=== PATIENT | female | born 1950 | race Caucasian/White ===

== ENCOUNTER → 2017-06-19 | Outpatient (CLI) | payer BC, MEDICARE ==
--- NOTE | 2017-06-19 15:33 | US ---
EXAMINATION TYPE: US thyroid st tissue head/neck DATE OF EXAM: 06/19/2017 COMPARISON: NONE CLINICAL HISTORY: E03.9 hypothyroidism. GLAND SIZE: Right Lobe: 5.6 x 1.4 x 1.5 cm Overall Parenchyma: diffusely heterogeneous Left Lobe: 4.9 x 1.3 x 1.2 cm Overall Parenchyma: diffusely heterogeneous Isthmus Thickness: 0.3 cm NODULES RIGHT: # of nodules measured on right: 1 1. 1.0 X 0.6 x 0.9 cm isoechoic solid nodule at the anterior mid pole with well definited margins. This nodule is wider than tall and shows no intranodular vascularity. Prior size: no previous LEFT: # of nodules measured on left: 0 ISTHMUS: # of nodules measured in the isthmus: 0 Bilateral neck scanned, no evidence of lymphadenopathy. IMPRESSION: Nonspecific thyroid nodule right thyroid lobe.
== END | disposition home or self-care (01) ==
LOC: RADUSWWP 13:31
PROVIDERS: ATTEND Family Medicine
DX: E04.1 Nontoxic single thyroid nodule (principal); E03.9 Hypothyroidism, unspecified
CPT/HCPCS: 76536

== ENCOUNTER 2017-08-23 12:14 | Day surgery (SDC) | payer BC, MEDICARE ==
[2017-08-23 12:47] VITALS: RESP 18
--- NOTE | 2017-08-23 13:45 | US ---
ULTRASOUND GUIDED FNA THYROID BIOPSY: CLINICAL HISTORY: 1 cm right thyroid nodule FINDINGS: The procedure was explained to the patient. The risks, complications, benefits and alternatives were discussed and any questions were answered. Informed consent was obtained. Patient was placed supin e on the ultrasound table and prepped and draped in the usual sterile fashion. Utilizing a 25 gauge needle, five passes were made into the requested nodule. Patient was stable throughout the procedure. Pathology is pending. All elements of maximal barrier technique were utilized. IMPRESSION: 1. Successful ultrasound guided FNA thyroid biopsy.
[2017-08-23 14:01] VITALS: BP 116/62; PULSE 66; TEMP 97.6
== END 2017-08-23 13:45 | disposition home or self-care (01) ==
LOC: RADPROMAIN 12:14
PROVIDERS: ATTEND Otolaryngology
DX: E04.1 Nontoxic single thyroid nodule (principal)
CPT/HCPCS: 10022; 76942; 88173; 88305

== ENCOUNTER → 2018-06-26 | Outpatient (CLI) | payer BC, MEDICARE ==
--- NOTE | 2018-06-26 14:43 | US ---
EXAMINATION TYPE: US thyroid st tissue head/neck DATE OF EXAM: 06/26/2018 COMPARISON: US dated 08/23/2017 and 06/19/2017 CLINICAL HISTORY: E04.1 THYROID NODULE. F/U right thyroid nodule GLAND SIZE: Right Lobe: 5.0 x 1.4 x 1.5 cm Overall Parenchyma: heterogenous Left Lobe: 4.6 x 1.1 x 1.4 cm Overall Parenchyma: heterogeneous Isthmus Thickness: 0.3 cm NODULES RIGHT: # of nodules measured on right: 1 1. 1.0 X 0.5 x 0.9 cm isoechoic solid nodule at the mid pole with poorly defined margins; This nodu le is wider than tall and shows intranodular vascularity. Prior size: 1.0 x 0.6 x 0.9 cm Bilateral neck scanned, no evidence of lymphadenopathy. Stable nodule right thyroid. IMPRESSION: Stable solitary 1.0 cm right thyroid isoechoic nodule in comparison to the exam of 06/19/2017, appeari ng to be previously biopsied on 08/23/2017.
== END | disposition home or self-care (01) ==
LOC: RADUSWWP 14:11
PROVIDERS: ATTEND Otolaryngology
DX: E04.1 Nontoxic single thyroid nodule (principal)
CPT/HCPCS: 76536

== ENCOUNTER → 2021-01-03 | Outpatient (CLI) | payer MEDICARE ==
--- NOTE | 2021-01-03 15:57 | US ---
EXAMINATION TYPE: US thyroid st tissue head/neck DATE OF EXAM: 01/03/2021 COMPARISON: 06/26/2018 CLINICAL HISTORY: E04.1 thyroid nodule. Thyroid nodule, patient on thyroid meds, history of thyroid F NA GLAND SIZE: Right Lobe: 5.2 x 1.4 x 1.4 cm Overall Parenchyma: heterogenous Left Lobe: 4.5 x 1.4 x 1.4 cm Overall Parenchyma: heterogeneous Isthmus Thickness: 0.3 cm NODULES RIGHT: # of nodules measured on right: 1 1. 1.0 X 0.6 x 0.9 cm, mid mid, solid or almost completely solid, isoechoic nodule, which is wider than tall, with smooth margins, without echogenic foci. Prior size: 1.0 x 0.5 x 0.9 cm LEFT: # of nodules measured on left: 1 1. 0.9 X 0.6 x 0.8 cm, lower lateral, solid or almost completely solid, isoechoic nodule, which is wider than tall, with smooth margins, without echogenic foci. Prior size: no previous ISTHMUS: # of nodules measured in the isthmus: 0 Bilateral neck scanned, no evidence of lymphadenopathy. IMPRESSION: Essentially stable glandular heterogeneity and nodularity. 2017 ACR TI-RADS LEVEL: *Highest TI-RADS level nodule reported
== END | disposition home or self-care (01) ==
LOC: RADUSWWP 15:29
PROVIDERS: ATTEND Family Medicine
DX: E04.1 Nontoxic single thyroid nodule (principal)
CPT/HCPCS: 76536

== ENCOUNTER → 2021-12-22 | Outpatient (CLI) | payer MEDICARE ==
--- NOTE | 2021-12-22 16:58 | US ---
EXAMINATION TYPE: US thyroid st tissue head/neck DATE OF EXAM: 12/22/2021 COMPARISON: NONE CLINICAL HISTORY: E04.1 SINGLE THYROID NODULE. Follow up to previous GLAND SIZE: Right Lobe: 5.5 x 1.4 x 1.6 cm Overall Parenchyma: heterogenous Left Lobe: 5.4 x 1.2 x 1.4 cm Overall Parenchyma: heterogeneous Isthmus Thickness: .3 cm NODULES RIGHT: # of nodules measured on right: 0 LEFT: # of nodules measured on left: 0 ISTHMUS: # of nodules measured in the isthmus: 0 Bilateral neck scanned, no evidence of lymphadenopathy. Heterogenous no definite nodules seen as on previous. IMPRESSION: Glandular heterogeneity without discrete nodule seen.
== END | disposition home or self-care (01) ==
LOC: RADUSWWP 14:53
PROVIDERS: ATTEND Family Medicine
DX: E04.1 Nontoxic single thyroid nodule (principal)
CPT/HCPCS: 76536

== ENCOUNTER → 2022-01-16 | Outpatient (CLI) | payer MEDICARE ==
--- NOTE | 2022-01-17 14:56 | MM ---
Reason for Exam: Screening (asymptomatic). Last mammogram was performed 1 year(s) and 1 month(s) ago. Patient History: Menarche at age 12. Postmenopausal. Risk Values: Roxana 5 year model risk: 1.3%. NCI Lifetime model risk: 3.5%. Prior Study Comparison: 09/11/2018 Bilateral MG screening mammo w CAD - 2, Unknown. 11/12/2019 Bilateral MG screening mammo w CAD - 2, [facility]. 12/08/2020 Bilateral MG 3D screening mammo w/cad, Unknown. Tissue Density: There are scattered fibroglandular densities. Findings: Analyzed By CAD. No suspicious groups of microcalcifications, spiculated or lobular masses, architectural distortion or other secondary signs of malignancy are mammographically apparent. Overall Assessment: Benign, BI-RAD 2 Management: Screening Mammogram of both breasts in 1 year. A negative mammogram report should not preclude additional follow up of suspicious palpable abnormalities. Patient should continue monthly self breast exam. A clinical breast exam by your physician is recommended on an annual basis and results should be correlated with mammographic findings. Electronically signed and approved by: Janak Mendoza D.O. Radiologis
== END | disposition home or self-care (01) ==
LOC: RADMAMWWP 07:54
PROVIDERS: ATTEND Family Medicine
DX: Z12.31 Encounter for screening mammogram for malignant neoplasm of breast (principal); Z78.0 Asymptomatic menopausal state
CPT/HCPCS: 77063; 77067

== ENCOUNTER → 2023-01-17 | Outpatient (CLI) | payer MEDICARE ==
--- NOTE | 2023-01-18 08:31 | MM ---
Reason for Exam: Screening (asymptomatic). Last screening mammogram was performed 12 month(s) ago. Patient History: Menarche at age 12. Postmenopausal. Risk Values: Roxana 5 year model risk: 1.3%. NCI Lifetime model risk: 3.3%. Prior Study Comparison: 11/12/2019 Bilateral MG screening mammo w CAD - 2, [facility]. 12/08/2020 Bilateral MG 3D screening mammo w/cad, Unknown. 01/16/2022 Bilateral MG 3D screening mammo w/cad, [facility]. Tissue Density: The breast tissue is almost entirely fat. Findings: Analyzed By CAD. There is no suspicious group of microcalcifications or new suspicious mass in either breast. Overall Assessment: Negative, BI-RAD 1 Management: Screening Mammogram of both breasts in 1 year. . Patient should continue monthly self-breast exams. A clinical breast exam by your physician is recommended on an annual basis. This exam should not preclude additional follow-up of suspicious palpable abnormalities. Note on Roxana scores and lifetime risk: 1. A Roxana score greater than 3% is considered moderate risk. If this is the case, consider specialist referral to assess eligibility for a risk reducing agent. 2. If overall lifetime risk for the development of breast cancer is 20% or higher, the patient may qualify for future screening with alternating mammogram and breast MRI. Electronically signed and approved by: Tyrone Pagan M.D. Radiologis
== END | disposition home or self-care (01) ==
LOC: RADMAMWWP 10:51
PROVIDERS: ATTEND Family Medicine
DX: Z12.31 Encounter for screening mammogram for malignant neoplasm of breast (principal); Z78.0 Asymptomatic menopausal state
CPT/HCPCS: 77063; 77067

== ENCOUNTER → 2024-01-20 | Outpatient (CLI) | payer MEDICARE ==
--- NOTE | 2024-02-07 09:49 | MM ---
Reason for Exam: Screening (asymptomatic). Last screening mammogram was performed 12 month(s) ago. Patient History: Menarche at age 12. Postmenopausal. Risk Values: Roxana 5 year model risk: 1.3%. NCI Lifetime model risk: 3.1%. Prior Study Comparison: 12/08/2020 Bilateral MG 3D screening mammo w/cad, Unknown. 01/16/2022 Bilateral MG 3D screening mammo w/cad, [facility]. 01/17/2023 Bilateral MG 3D screening mammo w/cad, [facility]. Tissue Density: The breasts are almost entirely fatty. Findings: Analyzed By CAD. Right breast: There is no suspicious group of microcalcifications or new suspicious mass. Left breast: There is no suspicious group of microcalcifications or new suspicious mass. Overall Assessment: Negative, BI-RAD 1 Management: Screening Mammogram of both breasts in [address] [facility] will attempt to contact patient to return for supplemental views and ultrasound if indicated. Patient should continue monthly self-breast exams. A clinical breast exam by your physician is recommended on an annual basis. This exam should not preclude additional follow-up of suspicious palpable abnormalities. Note on Roxana scores and lifetime risk: 1. A Roxana score greater than 3% is considered moderate risk. If this is the case, consider specialist referral to assess eligibility for a risk reducing agent. 2. If overall lifetime risk for the development of breast cancer is 20% or higher, the patient may qualify for future screening with alternating mammogram and breast MRI. Electronically signed and approved by: Efrain Connor DO
== END | disposition home or self-care (01) ==
LOC: RADMAMWWP 12:00
PROVIDERS: ATTEND Family Medicine
DX: Z12.31 Encounter for screening mammogram for malignant neoplasm of breast
CPT/HCPCS: 77063; 77067